=== PATIENT | female | born 1965 | race Two or more races ===

== ENCOUNTER 2017-07-27 16:23 | Emergency (ER) | payer OTHER | END 2017-07-27 16:44 | disposition home or self-care (01) | LOC: ER 16:23 | DX: J32.9 Chronic sinusitis, unspecified (principal); I10 Essential (primary) hypertension; E78.00 Pure hypercholesterolemia, unspecified; M79.7 Fibromyalgia; Z86.14 Personal history of Methicillin resistant Staphylococcus aureus infection | CPT/HCPCS: 99283 ==

== ENCOUNTER 2018-12-30 14:56 | Emergency (ER) | payer OTHER ==
[~2018-12-30] VITALS: Ht 162.6 cm; Wt 113.4 kg
[~2018-12-30 14:56] MED LIST: AMOX1TAB11 PO; BP MEDICATION PO; CHOL10002 PO; CYCL10TA2 PO; HYDR-3164 PO; IBUP200T44 PO; PRED20TA PO
[2018-12-30] MEDS ORDERED: IV NORMAL SALINE 1000ML BAG 1,000 ML IV ONE (16:00)
[2018-12-30 16:26] LABS: BILIRUBIN,URINE NEGATIVE (NEG); CLARITY,URINE CLEAR; COLOR,URINE YELLOW; NITRITE,URINE POSITIVE (NEG); PROTEIN,URINE NEGATIVE (NEG-TRACE); UROBILINOGEN,URINE 0.2 mg/dL (0.2 mg/dL)
[2018-12-30 16:28] LABS: BASO # 0.2 x10^3/uL (0.0-0.2); BASO % 1 % (0-3); EOS # 0.1 x10^3/uL (0.0-0.7); EOS % 1 % (0-3); HEMATOCRIT 44.7 % (36.0-47.0); HEMOGLOBIN 15.4 g/dL (12.0-15.5); LYMPH # 2.8 x10^3/uL (1.0-4.8); LYMPH % 23 % (24-48); MEAN CORPUSCULAR HEMOGLOBIN 29 pg (25-35); MEAN CORPUSCULAR HGB CONC 35 g/dL (31-37); MEAN CORPUSCULAR VOLUME 84 fL (79-100); MONO # 0.5 x10^3/uL (0.0-1.1); MONO % 5 % (0-9); NEUT # 8.4 x10^3/uL (1.8-7.7); NEUT % 70 % (31-73); PLATELET COUNT 190 x10^3/uL (140-400); RED CELL DISTRIBUTION WIDTH 12.7 % (11.5-14.5); WHITE BLOOD COUNT 12.1 x10^3/uL (4.0-11.0)
[2018-12-30 16:35] LABS: PROTHROMBIN TIME PATIENT 12.2 SEC (11.7-14.0)
[2018-12-30 16:43] LABS: BACTERIA,URINE MANY /HPF (0-FEW); RBC,URINE 0 /HPF (0-2); SQUAMOUS EPITHELIAL CELL,UR MOD /LPF
[2018-12-30 17:10] LABS: CALCIUM 8.6 mg/dL (8.5-10.1); CREATININE 0.6 mg/dL (0.6-1.0); GFR 104.2; POTASSIUM 3.9 mmol/L (3.5-5.1)
--- NOTE | 2018-12-30 17:12 | PHYS DOC ---
Past Medical History Past Medical History: Fibromyalgia, High Cholesterol, Hypertension Additional Past Medical Histor: colitis Past Surgical History: , Other Additional Past Surgical Histo: colonoscopy, rt axilla for MRSA Alcohol Use: None Drug Use: None Adult General Chief Complaint Chief Complaint: ABDOMINAL PAIN HPI HPI Patient is a 53 year old female presented to ER today for evaluation of epigastric abdominal pain off and on for about 2 months, associates with some nausea, vomiting. Patient also had some loose stool, denies any dark stool or vomiting blood. Patient is not currently on any medication. Patient has history of fibromyalgia but she IS not taking medication. Patient is a smoker. She had no history of coronary artery disease, no history of blood clot disorder, no history of hypertension or diabetic. Review of Systems Review of Systems Constitutional: Denies fever or chills [] Eyes: Denies change in visual acuity, redness, or eye pain [] HENT: Denies nasal congestion or sore throat [] Respiratory: Denies cough or shortness of breath [] Cardiovascular: No additional information not addressed in HPI [] GI: positive for abdominal pain, nausea, vomiting, no bloody stools or diarrhea [] : Denies dysuria or hematuria [] Musculoskeletal: Denies back pain or joint pain [] Integument: Denies rash or skin lesions [] Neurologic: Denies headache, focal weakness or sensory changes [] Endocrine: Denies polyuria or polydipsia [] All other systems were reviewed and found to be within normal limits, except as documented in this note. Current Medications Current Medications Current Medications Medications (Trade) Dose Ordered Sig/Brie Start Time Stop Time Status Last Admin Dose Admin Iohexol (Omnipaque 300 Mg/ml) 75 ml 1X ONCE 12/30/18 17:15 12/30/18 17:16 DC 12/30/18 17:15 75 ML Sodium Chloride 1,000 ml @ 1,000 mls/hr 1X ONCE 12/30/18 16:00 12/30/18 16:59 DC 12/30/18 16:15 1,000 MLS/HR Allergies Allergies Allergies Coded Allergies Type Severity Reaction Last Updated Verified No Known Drug Allergies 10/16/13 No Physical Exam Physical Exam Constitutional: Well developed, well nourished, no acute distress, non-toxic appearance. [] HENT: Normocephalic, atraumatic, bilateral external ears normal, oropharynx moist, no oral exudates, nose normal. [] Eyes: PERRLA, EOMI, conjunctiva normal, no discharge. [] Neck: Normal range of motion, no tenderness, supple, no stridor. [] Cardiovascular:Heart rate regular rhythm, no murmur [] Lungs & Thorax: Bilateral breath sounds clear to auscultation [] Abdomen: Bowel sounds normal, soft, There is tenderness to palpation in epigastric area, no masses, no pulsatile masses. [] Skin: Warm, dry, no erythema, no rash. [] Back: No tenderness, no CVA tenderness. [] Extremities: No tenderness, no cyanosis, no clubbing, ROM intact, no edema. [] Neurologic: Alert and oriented X 3, normal motor function, normal sensory function, no focal deficits noted. [] Psychologic: Affect normal, judgement normal, mood normal. [] Current Patient Data Vital Signs Vital Signs Date Time Temp Pulse Resp B/P (MAP) Pulse Ox O2 Delivery O2 Flow Rate FiO2 12/30/18 15:54 97.9 91 18 142/82 (102) 95 Room Air 97.9 Lab Values Laboratory Tests Test 12/30/18 15:46 12/30/18 16:00 12/30/18 16:45 Urine Collection Type Unknown Urine Color Yellow Urine Clarity Clear Urine pH 6.0 Urine Specific [place] 1.010 Urine Protein Negative mg/dL (NEG-TRACE) Urine Glucose (UA) 100 mg/dL (NEG) Urine Ketones (Stick) Negative mg/dL (NEG) Urine Blood Negative (NEG) Urine Nitrite Positive (NEG) Urine Bilirubin Negative (NEG) Urine Urobilinogen Dipstick 0.2 mg/dL (0.2 mg/dL) Urine Leukocyte Esterase Trace (NEG) Urine RBC 0 /HPF (0-2) Urine WBC 1-4 /HPF (0-4) Urine Squamous Epithelial Cells Mod /LPF Urine Bacteria Many /HPF (0-FEW) White Blood Count 12.1 x10^3/uL (4.0-11.0) H Red Blood Count 5.30 x10^6/uL (3.50-5.40) Hemoglobin 15.4 g/dL (12.0-15.5) Hematocrit 44.7 % (36.0-47.0) Mean Corpuscular Volume 84 fL (79-100) Mean Corpuscular Hemoglobin 29 pg (25-35) Mean Corpuscular Hemoglobin Concent 35 g/dL (31-37) Red Cell Distribution Width 12.7 % (11.5-14.5) Platelet Count 190 x10^3/uL (140-400) Neutrophils (%) (Auto) 70 % (31-73) Lymphocytes (%) (Auto) 23 % (24-48) L Monocytes (%) (Auto) 5 % (0-9) Eosinophils (%) (Auto) 1 % (0-3) Basophils (%) (Auto) 1 % (0-3) Neutrophils # (Auto) 8.4 x10^3/uL (1.8-7.7) H Lymphocytes # (Auto) 2.8 x10^3/uL (1.0-4.8) Monocytes # (Auto) 0.5 x10^3/uL (0.0-1.1) Eosinophils # (Auto) 0.1 x10^3/uL (0.0-0.7) Basophils # (Auto) 0.2 x10^3/uL (0.0-0.2) Prothrombin Time 12.2 SEC (11.7-14.0) Prothrombin Time INR 0.9 (0.8-1.1) PTT 27 SEC (24-38) Sodium Level 136 mmol/L (136-145) Potassium Level 3.9 mmol/L (3.5-5.1) Chloride Level 101 mmol/L (98-107) Carbon Dioxide Level 24 mmol/L (21-32) Anion Gap 11 (6-14) Blood Urea Nitrogen 8 mg/dL (7-20) Creatinine 0.6 mg/dL (0.6-1.0) Estimated GFR (Cockcroft-Gault) 104.2 BUN/Creatinine Ratio 13 (6-20) Glucose Level 242 mg/dL (70-99) H Calcium Level 8.6 mg/dL (8.5-10.1) Total Bilirubin 0.3 mg/dL (0.2-1.0) Aspartate Amino Transferase (AST) 12 U/L (15-37) L Alanine Aminotransferase (ALT) 26 U/L (14-59) Alkaline Phosphatase 129 U/L (46-116) H Troponin I Quantitative < 0.017 ng/mL (0.000-0.055) Total Protein 6.1 g/dL (6.4-8.2) L Albumin 3.0 g/dL (3.4-5.0) L Albumin/Globulin Ratio 1.0 (1.0-1.7) Lipase 84 U/L (73-393) Laboratory Tests 12/30/18 16:00 Laboratory Tests 12/30/18 16:45 EKG EKG [] Radiology/Procedures Radiology/Procedures [][facility] [address] [place] [address] IMAGING REPORT Signed PATIENT: JAYSHREE ROBERTS ACCOUNT: [id number] : 1965 LOCATION: ER AGE: 53 SEX: F EXAM STATUS: REG ER ORD. PHYSICIAN: SUJEY WILLARD DO REASON: ABDOMINAL PAIN, NAUSEA AND VOMITING OFF AND ON FOR 2 MONTHS. PROCEDURE: CT ABD PELV W/ IV CONTRST ONLY CT ABD PELV W/ IV CONTRST ONLY Indication: Abdominal pain, nausea and vomiting are minimally for 2 months. Exposure: One or more of the following individualized dose reduction techniques were utilized for this examination: 1. Automated exposure control 2. Adjustment of the mA and/or kV according to patient size 3. Use of iterative reconstruction technique. Technique: Intravenous contrast was given. No oral contrast per request. Lung bases are clear. Liver is mildly enlarged, about 22 cm cephalocaudal. No focal hepatic lesion. Spleen not enlarged. Pancreas unremarkable. No evidence of right adrenal mass. There is a small left adrenal nodule measuring 12 mm. Kidneys demonstrate symmetric enhancement without evidence of a focal mass. No hydronephrosis. No calcified gallstone. Aorta is nonaneurysmal, mildly calcified. No significant lymph node enlargement is identified. No significant small bowel distention. Colonic diverticulosis. There is mild sigmoid colon wall thickening without much paracolonic inflammatory stranding. Appendix appears normal. No evidence of pneumoperitoneum radiology. No significant ascites. Urinary bladder demonstrates no significant wall thickening. No evidence of a pelvic mass. Small fat-containing umbilical hernia at the anterior abdominal wall. Transitional anatomy at the lumbosacral junction. Mild degenerative changes of the spine. Minimal anterolisthesis of approximately L5 on S1. Facet joint degenerative change at the lumbosacral junction. IMPRESSION: 1. Colonic diverticulosis. Mild sigmoid colon wall thickening, raising the question of mild colitis, but note there is no adjacent inflammatory stranding. 2. Small left adrenal nodule measuring 12 mm. Nonspecific but statistically would most commonly represent an adenoma. Radiology Electronically signed by: Adrián Pascal MD (12/30/2018 6:01 PM) [facility] DICTATED and SIGNED BY: ADRIÁN PASCAL MD DATE: 12/30/181800 Course & Med Decision Making Course & Med Decision Making Pertinent Labs and Imaging studies reviewed. (See chart for details) [] Dragon Disclaimer Dragon Disclaimer This electronic medical record was generated, in whole or in part, using a voice recognition dictation system. Departure Departure Impression: Primary Impression: Gastritis Disposition: 01 HOME, SELF-CARE Condition: IMPROVED Referrals: UNKNOWN PCP NAME (PCP) follow up with your family doctor for furthere evaluation. Patient Instructions: Gastritis, Adult Scripts Metoclopramide Hcl (REGLAN) 10 Mg Tablet 1 TAB PO QID PRN for NAUSEA, #30 TAB Prov: SUJEY WILLARD DO 12/30/18 Omeprazole Magnesium (PRILOSEC OTC) 20 Mg Tablet.dr 1 TAB PO BID for 30 Days, #60 TAB 2 Refills Prov: SUJEY WILLARD DO 12/30/18 Sucralfate (CARAFATE) 1 Gm Tablet 1 TAB PO QID, #56 TAB 1 Refill Prov: SUJEY WILLARD DO 12/30/18 SUJEY WILLARD DO Dec 30, 2018 17:12
[2018-12-30] MEDS ORDERED: IOHEXOL 300 MG/ML 100ML VIAL. IV ONE (17:15)
[2018-12-30 17:16] LABS: TOTAL BILIRUBIN 0.3 mg/dL (0.2-1.0); TOTAL PROTEIN 6.1 g/dL (6.4-8.2)
[2018-12-30 18:00] VITALS: BP 134/79
--- NOTE | 2018-12-30 18:04 | RAD ---
CT ABD PELV W/ IV CONTRST ONLY Indication: Abdominal pain, nausea and vomiting are minimally for 2 months. Exposure: One or more of the following individualized dose reduction techniques were utilized for this examination: 1. Automated exposure control 2. Adjustment of the mA and/or kV according to patient size 3. Use of iterative reconstruction technique. Technique: Intravenous contrast was given. No oral contrast per request. Lung bases are clear. Liver is mildly enlarged, about 22 cm cephalocaudal. No focal hepatic lesion. Spleen not enlarged. Pancreas unremarkable. No evidence of right adrenal mass. There is a small left adrenal nodule measuring 12 mm. Kidneys demonstrate symmetric enhancement without evidence of a focal mass. No hydronephrosis. No calcified gallstone. Aorta is nonaneurysmal, mildly calcified. No significant lymph node enlargement is identified. No significant small bowel distention. Colonic diverticulosis. There is mild sigmoid colon wall thickening without much paracolonic inflammatory stranding. Appendix appears normal. No evidence of pneumoperitoneum radiology. No significant ascites. Urinary bladder demonstrates no significant wall thickening. No evidence of a pelvic mass. Small fat-containing umbilical hernia at the anterior abdominal wall. Transitional anatomy at the lumbosacral junction. Mild degenerative changes of the spine. Minimal anterolisthesis of approximately L5 on S1. Facet joint degenerative change at the lumbosacral junction. IMPRESSION: 1. Colonic diverticulosis. Mild sigmoid colon wall thickening, raising the question of mild colitis, but note there is no adjacent inflammatory stranding. 2. Small left adrenal nodule measuring 12 mm. Nonspecific but statistically would most commonly represent an adenoma. Radiology Electronically signed by: Adrián Pascal MD (12/30/2018 6:01 PM) [facility]
[2018-12-30] MEDS ORDERED: METO10TA81 PO (18:10)
[2018-12-30] MEDS ORDERED: SUCR1TAB35 PO (18:10)
[2018-12-30] MEDS ORDERED: OMEP20TA63 PO (18:10)
[2018-12-30] MEDS ORDERED: CEPHALEXIN 250 MG CAPSULE. PO ONE (18:30)
[2018-12-30] MEDS ORDERED: CEPH-264 PO (18:35)
--- NOTE | 2018-12-31 07:40 | EKG ---
[facility] [address] [place] [address] Test Date: 2018-12-30 Test Time: 16:00:15 Pat Name: JAYSHREE ROBERTS Department: Room: Gender: F [place]: : 1965 Requested By: SUJEY WILLARD Order Number: [id number] Reading MD: Measurements Intervals [place] Rate: 83 P: 39 [place]: 158 QRS: -13 QRSD: 74 T: 14 QT: 366 QTc: 436 Interpretive Statements SINUS RHYTHM LEFTWARD AXIS QRS(T) CONTOUR ABNORMALITY CONSIDER ANTEROLATERAL MYOCARDIAL DAMAGE POSSIBLY ABNORMAL ECG RI6.01 Unconfirmed report No previous ECG available for comparison
== END 2018-12-30 18:40 | disposition home or self-care (01) ==
LOC: ER 14:56
DX: K29.70 Gastritis, unspecified, without bleeding (principal); I10 Essential (primary) hypertension; E78.00 Pure hypercholesterolemia, unspecified
CPT/HCPCS: 36415; 74177; 80053; 81001; 83690; 84484; 85025; 85610; 85730; 87086; 93005; 96360; 99285; J7030; Q9967

== ENCOUNTER 2019-03-06 14:41 | Emergency (ER) | payer OTHER ==
[~2019-03-06] VITALS: Ht 162.6 cm; Wt 87.5 kg
[~2019-03-06 14:41] MED LIST changes: +CEPH-264 PO; +METO10TA81 PO; +OMEP20TA63 PO; +SUCR1TAB35 PO
[2019-03-06 15:55] LABS: BASO # 0.1 x10^3/uL (0.0-0.2); BASO % 1 % (0-3); EOS # 0.2 x10^3/uL (0.0-0.7); EOS % 2 % (0-3); HEMATOCRIT 47.9 % (36.0-47.0); HEMOGLOBIN 16.5 g/dL (12.0-15.5); LYMPH # 3.5 x10^3/uL (1.0-4.8); LYMPH % 29 % (24-48); MEAN CORPUSCULAR HEMOGLOBIN 29 pg (25-35); MEAN CORPUSCULAR HGB CONC 35 g/dL (31-37); MEAN CORPUSCULAR VOLUME 84 fL (79-100); MONO # 0.8 x10^3/uL (0.0-1.1); MONO % 6 % (0-9); NEUT # 7.5 x10^3/uL (1.8-7.7); NEUT % 62 % (31-73); PLATELET COUNT 221 x10^3/uL (140-400); RED BLOOD COUNT 5.69 x10^6/uL (3.50-5.40); RED CELL DISTRIBUTION WIDTH 12.6 % (11.5-14.5); WHITE BLOOD COUNT 12.1 x10^3/uL (4.0-11.0)
[2019-03-06] MEDS ORDERED: MORPHINE SULFATE 4 MG/ML VIAL. IV ONE (16:00)
[2019-03-06] MEDS ORDERED: ONDANSETRON PF 4 MG/2 ML VIAL. IVP ONE (16:00)
[2019-03-06] MEDS ORDERED: IV NORMAL SALINE 1000ML BAG 1,000 ML IV ONE (16:00)
[2019-03-06 16:05] LABS: CALCIUM 9.6 mg/dL (8.5-10.1); CREATININE 0.6 mg/dL (0.6-1.0); GFR 103.8; POTASSIUM 4.2 mmol/L (3.5-5.1)
[2019-03-06 16:11] LABS: ALBUMIN 3.6 g/dL (3.4-5.0); ALBUMIN/GLOBULIN RATIO 0.9 (1.0-1.7); TOTAL BILIRUBIN 0.3 mg/dL (0.2-1.0); TOTAL PROTEIN 7.4 g/dL (6.4-8.2)
[2019-03-06] MEDS ORDERED: CONTRAST GIVEN. MC PRN (16:30)
[2019-03-06] MEDS ORDERED: IOHEXOL 300 MG/ML 100ML VIAL. IV ONE (16:30)
--- NOTE | 2019-03-06 16:57 | PHYS DOC ---
Past Medical History Past Medical History: Fibromyalgia, High Cholesterol, Hypertension Additional Past Medical Histor: colitis (MICHELINE WOODWARD APRN) Past Surgical History: , Other Additional Past Surgical Histo: colonoscopy, rt axilla for MRSA (MICHELINE WOODWARD APRN) Alcohol Use: None Drug Use: None (MICHELINE WOODWARD APRN) Adult General Chief Complaint Chief Complaint: ABDOMINAL PAIN HPI HPI Patient is a 54 year old female who presents with chronic abdominal pain, ongoing for 5 months, upper and LUQ. Seen here with labs and CT, no acute finding Saw PCP and US ordered for concerns or GB etiology, she is here for increased pain, vomiting for 2 days. no diarrhea or fevers. (MICHELINE WOODWARD APRN) Review of Systems Review of Systems Constitutional: Denies fever or chills [] Eyes: Denies change in visual acuity, redness, or eye pain [] HENT: Denies nasal congestion or sore throat [] Respiratory: Denies cough or shortness of breath [] Cardiovascular: No additional information not addressed in HPI [] GI: Denies bloody stools or diarrhea []c/o abdominal pain and vomiting : Denies dysuria or hematuria [] Musculoskeletal: Denies back pain or joint pain [] Integument: Denies rash or skin lesions [] Neurologic: Denies headache, focal weakness or sensory changes [] Endocrine: Denies polyuria or polydipsia [] All other systems were reviewed and found to be within normal limits, except as documented in this note. (MICHELINE WOODWARD APRN) Current Medications Current Medications Current Medications Medications (Trade) Dose Ordered Sig/Brie Start Time Stop Time Status Last Admin Dose Admin Info (CONTRAST GIVEN -- Rx MONITORING) 1 each PRN DAILY PRN 03/06/19 16:30 03/06/19 18:09 DC Iohexol (Omnipaque 300 Mg/ml) 75 ml 1X ONCE 03/06/19 16:30 03/06/19 16:31 DC 03/06/19 16:43 75 ML Morphine Sulfate (Morphine Sulfate) 4 mg 1X ONCE 03/06/19 16:00 03/06/19 16:01 DC 03/06/19 16:10 4 MG Ondansetron HCl (Zofran) 4 mg 1X ONCE 03/06/19 16:00 03/06/19 16:01 DC 03/06/19 16:08 4 MG Sodium Chloride 1,000 ml @ 1,000 mls/hr 1X ONCE 03/06/19 16:00 03/06/19 16:59 DC 03/06/19 16:09 1,000 MLS/HR (BOBBI CORBETT MD) Allergies Allergies Allergies Coded Allergies Type Severity Reaction Last Updated Verified No Known Drug Allergies 10/16/13 No (BOBBI CORBETT MD) Physical Exam Physical Exam Constitutional: Well developed, well nourished, no acute distress, non-toxic appearance. [] HENT: Normocephalic, atraumatic, bilateral external ears normal, oropharynx moist, no oral exudates, nose normal. [] Eyes: PERRLA, EOMI, conjunctiva normal, no discharge. [] Neck: Normal range of motion, no tenderness, supple, no stridor. [] Cardiovascular:Heart rate regular rhythm, no murmur [] Lungs & Thorax: Bilateral breath sounds clear to auscultation [] Abdomen: Bowel sounds normal, soft, no masses, no pulsatile masses. [] diffuse TTP of upper and left sided abdomen, no guarding, no rebound. Obese, no obvious masses palpated. No signs of trauma Skin: Warm, dry, no erythema, no rash. [] Back: No tenderness, no CVA tenderness. [] Extremities: No tenderness, no cyanosis, no clubbing, ROM intact, no edema. [] Neurologic: Alert and oriented X 3, normal motor function, normal sensory function, no focal deficits noted. [] Psychologic: Affect normal, judgement normal, mood normal. [] (MICHELINE WOODWARD APRN) Current Patient Data Vital Signs Vital Signs Date Time Temp Pulse Resp B/P (MAP) Pulse Ox O2 Delivery O2 Flow Rate FiO2 03/06/19 17:44 64 18 130/74 (92) 96 Room Air 03/06/19 15:23 97.8 97.8 (BOBBI CORBETT MD) Lab Values Laboratory Tests Test 03/06/19 14:40 White Blood Count 12.1 x10^3/uL (4.0-11.0) H Red Blood Count 5.69 x10^6/uL (3.50-5.40) H Hemoglobin 16.5 g/dL (12.0-15.5) H Hematocrit 47.9 % (36.0-47.0) H Mean Corpuscular Volume 84 fL (79-100) Mean Corpuscular Hemoglobin 29 pg (25-35) Mean Corpuscular Hemoglobin Concent 35 g/dL (31-37) Red Cell Distribution Width 12.6 % (11.5-14.5) Platelet Count 221 x10^3/uL (140-400) Neutrophils (%) (Auto) 62 % (31-73) Lymphocytes (%) (Auto) 29 % (24-48) Monocytes (%) (Auto) 6 % (0-9) Eosinophils (%) (Auto) 2 % (0-3) Basophils (%) (Auto) 1 % (0-3) Neutrophils # (Auto) 7.5 x10^3/uL (1.8-7.7) Lymphocytes # (Auto) 3.5 x10^3/uL (1.0-4.8) Monocytes # (Auto) 0.8 x10^3/uL (0.0-1.1) Eosinophils # (Auto) 0.2 x10^3/uL (0.0-0.7) Basophils # (Auto) 0.1 x10^3/uL (0.0-0.2) Sodium Level 138 mmol/L (136-145) Potassium Level 4.2 mmol/L (3.5-5.1) Chloride Level 101 mmol/L (98-107) Carbon Dioxide Level 27 mmol/L (21-32) Anion Gap 10 (6-14) Blood Urea Nitrogen 9 mg/dL (7-20) Creatinine 0.6 mg/dL (0.6-1.0) Estimated GFR (Cockcroft-Gault) 103.8 BUN/Creatinine Ratio 15 (6-20) Glucose Level 119 mg/dL (70-99) H Calcium Level 9.6 mg/dL (8.5-10.1) Total Bilirubin 0.3 mg/dL (0.2-1.0) Aspartate Amino Transferase (AST) 15 U/L (15-37) Alanine Aminotransferase (ALT) 29 U/L (14-59) Alkaline Phosphatase 166 U/L (46-116) H Total Protein 7.4 g/dL (6.4-8.2) Albumin 3.6 g/dL (3.4-5.0) Albumin/Globulin Ratio 0.9 (1.0-1.7) L Lipase 178 U/L (73-393) Laboratory Tests 03/06/19 14:40 Laboratory Tests 03/06/19 14:40 (BOBBI CORBETT MD) EKG EKG [] (MICHELINE WOODWARD APRN) Radiology/Procedures Radiology/Procedures []Signed PATIENT: JAYSHREE ROBERTS EACCOUNT: [id number] : 1965 LOCATION: ER AGE: 54 SEX: F EXAM STATUS: REG ER ORD. PHYSICIAN: MICHELINE WOODWARD APRN REASON: RUQ pain PROCEDURE: ABDOMEN LTD STUDY: Realtime grayscale and color Doppler ultrasonography of the right upper quadrant INDICATION: Right upper quadrant pain. COMPARISON: Same day CT abdomen/pelvis. Findings: Increased hepatic echogenicity suggestive of underlying hepatic steatosis. Within the right hepatic lobe, ill-defined area of increased echogenicity relative to background parenchyma without central Doppler flow favored more likely related to more focal fatty infiltration than a discrete lesion. The main portal vein is patent with hepatopedal flow. Normal gallbladder wall thickness. No sonographic Oscar's sign observed by the planetarium technician. No gallstones or layering sludge identified. Normal caliber of the common bile duct measuring 0.4 cm. The right kidney measures 12.4 cm in length with normal cortical thickness and echogenicity. No hydronephrosis. The visualized portion of the pancreas is unremarkable. The IVC is unremarkable. Impression: 1. Increased echogenicity of the liver suggestive of hepatic steatosis. Probable more focal area of fatty infiltration within the right hepatic lobe, as discussed above. 2. No sonographic findings to suggest acute cholecystitis. 3. Unremarkable right kidney and visualized portion of the pancreas. Electronically signed by: FCO HERRERA MD (03/06/2019 5:11 PM) [facility] Signed PATIENT: JAYSHREE ROBERTS EACCOUNT: [id number] : 1965 LOCATION: ER AGE: 54 SEX: F EXAM STATUS: REG ER ORD. PHYSICIAN: MICHELINE WOODWARD APRN REASON: abd pain PROCEDURE: CT ABD PELV W/ IV CONTRST ONLY EXAM: Abdomen and pelvis CT with intravenous contrast. HISTORY: Pain. TECHNIQUE: Computed tomographic images of the abdomen and pelvis were obtained following the administration of 75 cc Omnipaque 300 intravenous contrast. Multiplanar reformatting was performed. *One or more of the following individualized dose reduction techniques were utilized for this examination: 1. Automated exposure control. 2. Adjustment of the mA and/or kV according to patient size. 3. Use of iterative reconstruction technique. COMPARISON: 12/30/2018. FINDINGS: Evaluation of the lower thorax demonstrates no infiltrate or pleural effusion. The heart is normal in size. There is mild hepatomegaly and hepatic steatosis. No focal hepatic lesion is seen. The gallbladder, pancreas, spleen and right adrenal gland are unremarkable. There is a stable 1.8 cm left adrenal nodule. The kidneys are unremarkable. The appendix is normal in appearance. There is distal colonic diverticulosis. There is no convincing diverticulitis. There is no bowel obstruction. There is a small fat-containing umbilical hernia measuring 4.0 cm. There is stranding within the herniated fat and adjacent ventral peritoneal fat. There is no lymphadenopathy. There is no suspicious osseous lesion. There is a transitional lumbosacral segment, considered S1 for this dictation. There is grade 1 anterolisthesis of L5 on S1. IMPRESSION: 1. Distal colonic diverticulosis. There is no convincing diverticulitis. 2. Small fat-containing umbilical hernia. There is stranding within the herniated fat and adjacent ventral peritoneal fat. The possibility of slight fat ischemia is not excluded. 3. Slight interval increase in a 1.8 cm left adrenal nodule. Given the interval change, evaluation with an adrenal protocol MRI may be useful to confirm benignity. Electronically signed by: Octavia Soares MD (03/06/2019 4:58 PM) [facility] (MICHELINE WOODWARD APRN) Impressions: Abdominal pain (MICHELINE WOODWARD APRN) Course & Med Decision Making Course & Med Decision Making Pertinent Labs and Imaging studies reviewed. (See chart for details) []Diffuse upper and left sided abdominal pain, vomiting for 2 days Will obtain labs and CT, patient requesting US of GB, minimal RUQ pain, negative Oscar sign, will obtain this IV fluids and pain control Pain controlled, no vomiting in the ER Labs US and CT reviewed, no acute finding. discussed fatty liver and adrenal nodule, needs follow up Discussed home care, GI and PCP for follow up, Short course of [place] Educated on home care fu and reasons to return to the ER (MICHELINE WOODWARD APRN) Course & Med Decision Making Staff Physician Addendum: I was working in the ER during the course of this patient's visit. I was available for consultation as needed, but I was not directly involved in the care of this patient. (BOBBI CORBETT MD) Dragon Disclaimer Dragon Disclaimer This electronic medical record was generated, in whole or in part, using a voice recognition dictation system. (MICHELINE WOODWARD APRN) Departure Departure Impression: Primary Impression: Abdominal pain Disposition: HOME, SELF-CARE Condition: STABLE Referrals: Krystle GASCA MD (PCP) Patient Instructions: Abdominal Pain Additional Instructions: go home and rest Labs ultrasound and CT reviewed. Diverticulosis and left adrenal nodule. recomend further evaluation of this Call Dr Gasca and GI for follow up [place] as prescribed, bland diet, return for any concerns or worsening symptoms Scripts Hydrocodone/Apap 5-325 (NORCO 5-325 TABLET) 1 Each Tablet 1-2 TAB PO Q4-6HRS, #10 TAB Prov: MICHELINE WOODWARD APRN 03/06/19 MICHELINE WOODWARD APRN Mar 06, 2019 16:57 BOBBI CORBETT MD Mar 07, 2019 08:31
--- NOTE | 2019-03-06 17:01 | RAD ---
EXAM: Abdomen and pelvis CT with intravenous contrast. HISTORY: Pain. TECHNIQUE: Computed tomographic images of the abdomen and pelvis were obtained following the administration of 75 cc Omnipaque 300 intravenous contrast. Multiplanar reformatting was performed. *One or more of the following individualized dose reduction techniques were utilized for this examination: 1. Automated exposure control. 2. Adjustment of the mA and/or kV according to patient size. 3. Use of iterative reconstruction technique. COMPARISON: 12/30/2018. FINDINGS: Evaluation of the lower thorax demonstrates no infiltrate or pleural effusion. The heart is normal in size. There is mild hepatomegaly and hepatic steatosis. No focal hepatic lesion is seen. The gallbladder, pancreas, spleen and right adrenal gland are unremarkable. There is a stable 1.8 cm left adrenal nodule. The kidneys are unremarkable. The appendix is normal in appearance. There is distal colonic diverticulosis. There is no convincing diverticulitis. There is no bowel obstruction. There is a small fat-containing umbilical hernia measuring 4.0 cm. There is stranding within the herniated fat and adjacent ventral peritoneal fat. There is no lymphadenopathy. There is no suspicious osseous lesion. There is a transitional lumbosacral segment, considered S1 for this dictation. There is grade 1 anterolisthesis of L5 on S1. IMPRESSION: 1. Distal colonic diverticulosis. There is no convincing diverticulitis. 2. Small fat-containing umbilical hernia. There is stranding within the herniated fat and adjacent ventral peritoneal fat. The possibility of slight fat ischemia is not excluded. 3. Slight interval increase in a 1.8 cm left adrenal nodule. Given the interval change, evaluation with an adrenal protocol MRI may be useful to confirm benignity. Electronically signed by: Octavia Soares MD (03/06/2019 4:58 PM) [place] [id number]
--- NOTE | 2019-03-06 17:14 | RAD ---
STUDY: Realtime grayscale and color Doppler ultrasonography of the right upper quadrant INDICATION: Right upper quadrant pain. COMPARISON: Same day CT abdomen/pelvis. Findings: Increased hepatic echogenicity suggestive of underlying hepatic steatosis. Within the right hepatic lobe, ill-defined area of increased echogenicity relative to background parenchyma without central Doppler flow favored more likely related to more focal fatty infiltration than a discrete lesion. The main portal vein is patent with hepatopedal flow. Normal gallbladder wall thickness. No sonographic Oscar's sign observed by the isotope technician. No gallstones or layering sludge identified. Normal caliber of the common bile duct measuring 0.4 cm. The right kidney measures 12.4 cm in length with normal cortical thickness and echogenicity. No hydronephrosis. The visualized portion of the pancreas is unremarkable. The IVC is unremarkable. Impression: 1. Increased echogenicity of the liver suggestive of hepatic steatosis. Probable more focal area of fatty infiltration within the right hepatic lobe, as discussed above. 2. No sonographic findings to suggest acute cholecystitis. 3. Unremarkable right kidney and visualized portion of the pancreas. Electronically signed by: FCO HERRERA MD (03/06/2019 5:11 PM) [facility]
[2019-03-06] MEDS ORDERED: HYDR-3164 PO (17:40)
[2019-03-06 17:44] VITALS: BP 130/74
== END 2019-03-06 18:03 | disposition home or self-care (01) ==
LOC: ER 14:41
DX: R10.12 Left upper quadrant pain (principal); R10.11 Right upper quadrant pain; R11.10 Vomiting, unspecified; G89.29 Other chronic pain; E78.00 Pure hypercholesterolemia, unspecified; I10 Essential (primary) hypertension; Z98.890 Other specified postprocedural states
CPT/HCPCS: 36415; 74177; 76705; 80053; 83690; 85025; 96361; 96374; 96375; 99285; J2270; J2405; J7030; Q9967

== ENCOUNTER → 2019-03-26 | Outpatient (CLI) | payer OTHER ==
[2019-03-06 17:44] VITALS: BP 130/74
--- NOTE | 2019-03-26 12:38 | RAD ---
EXAM: Nuclear gastric emptying scan. HISTORY: Nausea/vomiting. Bloating. COMPARISON: None. TECHNIQUE: Serial static images were obtained over the stomach following oral administration of 2.1 mCi of 99m-Tc sulfur colloid in an egg based meal. FINDINGS: The stomach appears normal in contour. There is clearance of activity into the small bowel. The remaining fraction of gastric activity is as follows. 1 hour 52% (normal range 34.8-91%) 2 hour 30% (normal range 2.7-60%) 3 hour 4% (normal range 0.5-28%) 4 hour 1% (normal range 0-10%) IMPRESSION: 1. Normal gastric emptying. Electronically signed by: Aquiles Aguero MD (03/26/2019 12:35 PM) [facility]
== END | disposition home or self-care (01) ==
LOC: NM 07:57
PROVIDERS: ATTEND Family Medicine
DX: R10.84 Generalized abdominal pain (principal); E11.9 Type 2 diabetes mellitus without complications
CPT/HCPCS: 78264; A9541

== ENCOUNTER → 2019-04-01 | Outpatient (CLI) | payer OTHER ==
[2019-03-06 17:44] VITALS: BP 130/74
[~2019-04-01] MED LIST changes: +NORMAL SALINE IV ONE; +SINCALIDE IV ONE
--- NOTE | 2019-04-01 16:45 | RAD ---
EXAM: HEPATOBILIARY SCINTIGRAPHY WITH GALLBLADDER EJECTION FRACTION CALCULATION. HISTORY: Abdominal pain/nausea. Weight loss. TECHNIQUE: 5.5 mCi technetium-99m Choletec were administered intravenously and scintigraphic images of the abdomen obtained. After filling of the gallbladder, 1.71 mcg of sincalide were infused and the gallbladder ejection fraction calculated. FINDINGS: There is prompt hepatic clearance of tracer from the blood pool. There is homogeneous distribution throughout the liver. There is normal filling of the gallbladder and clearance into the biliary tree and small bowel. The gallbladder ejection fraction is 43% (normal >35%). IMPRESSION: 1. Normal gallbladder ejection fraction. Electronically signed by: Aquiles Aguero MD (04/01/2019 4:42 PM) [facility]
== END | disposition home or self-care (01) ==
LOC: NM 07:56
PROVIDERS: ATTEND Family Medicine
DX: R10.84 Generalized abdominal pain (principal); I10 Essential (primary) hypertension; E11.9 Type 2 diabetes mellitus without complications; F17.200 Nicotine dependence, unspecified, uncomplicated
CPT/HCPCS: 78227; A9537; J2805

== ENCOUNTER → 2019-07-02 | Outpatient (CLI) | payer OTHER ==
[~2019-07-02] MED LIST changes: +GADOTERATE 7.5 MMOL/15ML VIAL. IVP ONE; -NORMAL SALINE IV ONE; -SINCALIDE IV ONE
--- NOTE | 2019-07-02 14:17 | KCIC ---
EXAM: MRI ABDOMEN WITH AND WITHOUT CONTRAST. HISTORY: Left adrenal mass. TECHNIQUE: MRI of the abdomen was performed before and after the intravenous administration of 15 mL Dotarem. COMPARISON: 03/06/2019. FINDINGS: Adrenal glands: A nodule in the left adrenal gland measures 1.9 x 1.5 cm and demonstrates marked signal loss on opposed phase imaging, consistent with a benign adenoma. The right adrenal gland is unremarkable. Liver: Hepatic parenchymal signal loss on opposed phase images indicates mild diffuse hepatic steatosis. There are no suspicious hepatic lesions. Biliary tree: The gallbladder is unremarkable. The common duct is not dilated. A small cystic lesion along the inferior aspect of the pancreatic head/body junction measures 9 mm and communicates with a pancreatic ductal side branches. There is no enhancing component. A few tiny dilated side branch ducts are noted elsewhere. There are no suspicious pancreatic parenchymal lesions. The main pancreatic duct is not dilated. Other findings: Prominent periportal lymph nodes measure up to 2.1 x 1.3 cm. The kidneys and spleen are unremarkable. IMPRESSION: 1. 1.9 cm benign left adrenal adenoma. 2. 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 This is likely benign. Follow-up MRCP with and without contrast is recommended in 1-2 years. 3. Prominent periportal lymph nodes suggest hepatic inflammation. Correlate with serologies. 4. Mild diffuse hepatic steatosis. Electronically signed by: Aquiles Aguero MD (07/02/2019 2:14 PM) [facility]
== END | disposition home or self-care (01) ==
LOC: KCIC MRI 10:06
PROVIDERS: ATTEND Family Medicine
DX: D35.02 Benign neoplasm of left adrenal gland (principal); K76.0 Fatty (change of) liver, not elsewhere classified; E27.8 Other specified disorders of adrenal gland
CPT/HCPCS: 74183; A9575